=== PATIENT | male | born 1970 | race African-American/Black ===

== ENCOUNTER 2016-12-04 19:42 | Emergency (ER) | payer OTHER ==
[~2016-12-04] VITALS: Ht 170.2 cm; Wt 81.6 kg
[~2016-12-04 19:42] MED LIST: CLON1TAB3 PO; PHEN32.49 PO
[2016-12-04 20:46] LABS: Basophils # (auto) 0 uL; Basophils % (auto) 0.5 % (0.0-2.0); Eosinophils # (auto) 0.2 uL; Eosinophils % (auto) 3.4 % (0.0-7.0); Hematocrit 43.3 % (41.0-53.0); Hemoglobin 14.6 g/dL (13.5-17.5); Lymphocytes # (auto) 1.5 uL; Mean Corpuscular Hemoglobin 30.6 pg (28.0-32.0); Mean Corpuscular Hgb Conc. 33.8 g/dL (32.0-36.0); Mean Corpuscular Volume 90.8 fL (80.0-100.0); Mean Platelet Volume 7.7 fL (7.4-10.4); Monocytes # (auto) 0.3 uL; Monocytes % (auto) 6.1 % (0.0-12.0); Platelet Count (auto) 218 10^3/uL (140-450); Red Cell Distribution Width 12.8 % (11.6-16.0); White Blood Cell 4.9 10^3/uL (4.4-10.8)
[2016-12-04 21:06] LABS: Albumin 3.4 g/dL (3.4-5.0); Anion Gap 7 (5-15); Aspartate Aminotransferase 14 U/L (15-37); BUN/Creatinine Ratio 12.4; Blood Urea Nitrogen 11 mg/dL (7-18); Calcium 8.5 mg/dL (8.5-10.1); Carbon Dioxide 32 mmol/L (21-32); Chloride 102 mmol/L (98-107); GFR African American 119 mL/min; GFR Non-African American 99 mL/min; Glucose 99 mg/dL (74-106); Magnesium 2.2 mg/dL (1.6-2.6); Potassium 4.2 mmol/L (3.5-5.1); Sodium 141 mmol/L (136-145)
[2016-12-04 21:08] VITALS: BP 124/78
[2016-12-04 21:10] LABS: Alkaline Phosphatase 126 U/L (45-117); Bilirubin, Total 0.1 mg/dL (0.2-1.0); Total Protein 8.9 g/dL (6.4-8.2)
[2016-12-04 21:14] LABS: B-Type Natriuretic Peptide 13.14 pg/mL (0-100)
[2016-12-04 21:22] LABS: Temperature: 23.3 C (20.0-25.0)
[2016-12-04] MEDS ORDERED: cefTRIAXone 1GM/50ML D5W 50 ML IV ONE (21:45)
[2016-12-04] MEDS ORDERED: SODIUM CHLORIDE 0.9% 1,000 ML IV ONE (21:45)
[2016-12-04 22:23] LABS: Urine RBC None Seen /hpf (0 - 3)
[2016-12-04 22:45] LABS: Urine Bilirubin Negative (Negative); Urine Blood Negative /uL (Negative); Urine Color Yellow (Yellow); Urine Glucose Normal (Normal); Urine Ketone Negative (Negative); Urine Mucus FEW (None Seen); Urine Nitrite Negative (Negative); Urine Urobilinogen Normal (Negative)
== END 2016-12-04 23:34 | disposition home or self-care (01) ==
LOC: ER 19:57
DX: J40 Bronchitis, not specified as acute or chronic (principal)
CPT/HCPCS: 36415; 51702; 71010; 80053; 81001; 83735; 83880; 84484; 85025; 93005; 94761; 96365; 99285; J0696; J7030

== ENCOUNTER 2017-09-17 09:39 | Emergency (ER) | payer OTHER ==
[~2017-09-17] VITALS: Ht 165.1 cm; Wt 63.5 kg
[2017-09-17 09:52] VITALS: BP 110/74
[2017-09-17 10:11] LABS: Basophils # (auto) 0 uL; Basophils % (auto) 0.4 % (0.0-2.0); Eosinophils # (auto) 0 uL; Eosinophils % (auto) 0.4 % (0.0-7.0); Hematocrit 42.4 % (41.0-53.0); Hemoglobin 14.7 g/dL (13.5-17.5); Lymphocytes # (auto) 0.6 uL; Lymphocytes % (auto) 5.1 % (10.0-50.0); Mean Corpuscular Hemoglobin 30.9 pg (28.0-32.0); Mean Corpuscular Hgb Conc. 34.7 g/dL (32.0-36.0); Mean Corpuscular Volume 89.1 fL (80.0-100.0); Monocytes # (auto) 0.4 uL; Monocytes % (auto) 3.9 % (0.0-12.0); Neutrophils # (auto) 10.3 uL; Neutrophils % (auto) 90.2 % (37.0-80.0); Nucleated Red Blood Cells % 0.2 %; Platelet Count (auto) 221 10^3/uL (140-450); Red Blood Cells 4.76 10^6/uL (4.5-5.90); Red Cell Distribution Width 13.3 % (11.8-14.3); White Blood Cell 11.4 10^3/uL (4.4-10.8)
[2017-09-17 10:35] LABS: Albumin 3.8 g/dL (3.4-5.0); BUN/Creatinine Ratio 11.5; Calcium 9.3 mg/dL (8.5-10.1); Potassium 4.6 mmol/L (3.5-5.1); Total Protein 9.6 g/dL (6.4-8.2)
[2017-09-17] MEDS ORDERED: ONDANSETRON ODT 4 MG TAB PO ONE (12:00)
[2017-09-17 12:51] LABS: Bilirubin, Total 0.3 mg/dL (0.2-1.0)
== END 2017-09-17 13:24 | disposition home or self-care (01) ==
LOC: ER 09:39 → EDUNIT# 09:39 → EDBD 09:39 → ER 13:24
DX: G80.9 Cerebral palsy, unspecified (principal); R11.2 Nausea with vomiting, unspecified; Z91.010 Allergy to peanuts; Z91.013 Allergy to seafood; Z91.018 Allergy to other foods
CPT/HCPCS: 36415; 71045; 80053; 85025; 99285; Q0162

== ENCOUNTER 2018-01-30 18:43 | Inpatient (IN) | payer OTHER ==
[~2018-01-30] VITALS: Ht 177.8 cm; Wt 54.0 kg
[2018-01-30 21:19] LABS: Basophils # (auto) 0.1 uL; Basophils % (auto) 1.2 % (0.0-2.0); Eosinophils # (auto) 0.2 uL; Hematocrit 41.7 % (41.0-53.0); Hemoglobin 14.1 g/dL (13.5-17.5); Lymphocytes # (auto) 1.6 uL; Lymphocytes % (auto) 36.1 % (10.0-50.0); Mean Corpuscular Hgb Conc. 33.8 g/dL (32.0-36.0); Mean Corpuscular Volume 91.7 fL (80.0-100.0); Monocytes # (auto) 0.4 uL; Monocytes % (auto) 8.4 % (0.0-12.0); Neutrophils # (auto) 2.2 uL; Neutrophils % (auto) 49.3 % (37.0-80.0); Nucleated Red Blood Cells % 0.2 %; Platelet Count (auto) 200 10^3/uL (140-450); Red Blood Cells 4.54 10^6/uL (4.5-5.90); Red Cell Distribution Width 13.2 % (11.8-14.3); White Blood Cell 4.5 10^3/uL (4.4-10.8)
[2018-01-30 21:28] LABS: Albumin 3.2 g/dL (3.4-5.0); Anion Gap 7 (5-15); Blood Urea Nitrogen 16 mg/dL (7-18); Calcium 8.4 mg/dL (8.5-10.1); Carbon Dioxide 31 mmol/L (21-32); Chloride 108 mmol/L (98-107); GFR African American 104 mL/min; GFR Non-African American 86 mL/min; Glucose 81 mg/dL (74-106); Magnesium 2.1 mg/dL (1.6-2.6); Potassium 3.8 mmol/L (3.5-5.1); Sodium 146 mmol/L (136-145)
[2018-01-30 21:37] LABS: Alanine Aminotransferase 32 U/L (16-61); Alkaline Phosphatase 123 U/L (45-117); Aspartate Aminotransferase 15 U/L (15-37); Bilirubin, Total 0.2 mg/dL (0.2-1.0); Total Protein 8.9 g/dL (6.4-8.2)
[2018-01-30] MEDS ORDERED: SODIUM CHLORIDE 0.9% 1,000 ML IV ONE (22:45)
[2018-01-31] VITALS (7 sets, daily range): BP systolic 102–146; BP diastolic 68–100
[2018-01-31 00:17] LABS: Urine Bacteria NONE SEEN /hpf (None Seen); Urine Blood TRACE /uL (Negative); Urine Mucus FEW (None Seen); Urine Specific Gravity 1.032 (1.001-1.035); Urine WBC 1 /hpf (0 - 3)
[2018-01-31] MEDS ORDERED: cefTRIAXone 1GM/10ml IVPUSH 10 ML IV ONE ×2 (01:00)
[2018-01-31] MEDS ORDERED: ONDANSETRON HCL 4 MG/2 ML VIAL IV PRN (02:30)
[2018-01-31] MEDS ORDERED: ACETAMINOPHEN 325 MG TAB PO PRN (02:30)
[2018-01-31] MEDS ORDERED: TEMAZEPAM 15 MG CAP PO PRN (02:30)
[2018-01-31] MEDS: SODIUM CHLORIDE 0.9% 1,000 ML IV SCH ×4 (02:52→21:47)
[2018-01-31] MEDS: cefTRIAXone 1GM/10ml IVPUSH 10 ML IV SCH (09:12)
[2018-01-31] MEDS: ENOXAPARIN SOD 40 MG/0.4 ML SYRINGE SC SCH (10:00)
[2018-01-31] MEDS: FAMOTIDINE 20 MG TAB PO SCH ×2 (11:06→21:48)
[2018-01-31] MEDS: clonazePAM 0.5 MG TAB PO PRN (11:06)
[2018-01-31] MEDS: PHENobarbital 32.4 MG TAB PO SCH ×2 (11:06→21:48)
[2018-02-01] MEDS: SODIUM CHLORIDE 0.9% 1,000 ML IV SCH (04:21)
[2018-02-01] MEDS: clonazePAM 0.5 MG TAB PO PRN (04:40)
[2018-02-01 04:58] VITALS: BP 134/104
[2018-02-01 06:00] LABS: Basophils # (auto) 0 uL; Basophils % (auto) 0.8 % (0.0-2.0); Eosinophils # (auto) 0.2 uL; Eosinophils % (auto) 3.5 % (0.0-7.0); Hematocrit 39.3 % (41.0-53.0); Hemoglobin 13.4 g/dL (13.5-17.5); Lymphocytes # (auto) 1.4 uL; Lymphocytes % (auto) 25.7 % (10.0-50.0); Mean Corpuscular Hemoglobin 30.9 pg (28.0-32.0); Mean Corpuscular Hgb Conc. 34.1 g/dL (32.0-36.0); Mean Corpuscular Volume 90.6 fL (80.0-100.0); Monocytes # (auto) 0.3 uL; Monocytes % (auto) 6.3 % (0.0-12.0); Neutrophils # (auto) 3.5 uL; Neutrophils % (auto) 63.7 % (37.0-80.0); Platelet Count (auto) 199 10^3/uL (140-450); Red Blood Cells 4.34 10^6/uL (4.5-5.90); Red Cell Distribution Width 12.8 % (11.8-14.3); White Blood Cell 5.5 10^3/uL (4.4-10.8)
[2018-02-01 06:43] LABS: Albumin 3.1 g/dL (3.4-5.0); BUN/Creatinine Ratio 15.6; Bilirubin, Total 0.3 mg/dL (0.2-1.0); Calcium 8.4 mg/dL (8.5-10.1); Potassium 3.8 mmol/L (3.5-5.1); Total Protein 8.2 g/dL (6.4-8.2)
[2018-02-01 07:52] VITALS: BP 135/86
[2018-02-01] MEDS: ENOXAPARIN SOD 40 MG/0.4 ML SYRINGE SC SCH (10:54)
[2018-02-01] MEDS: PHENobarbital 32.4 MG TAB PO SCH (10:54)
[2018-02-01] MEDS: FAMOTIDINE 20 MG TAB PO SCH (10:54)
[2018-02-01] MEDS: cefTRIAXone 1GM/10ml IVPUSH 10 ML IV SCH (10:54)
[2018-02-01 11:57] VITALS: BP 139/97
[2018-02-01 12:09] VITALS: BP 139/97
== END 2018-02-01 13:00 | disposition home or self-care (01) | DRG 202 ==
LOC: EDUNIT# 18:43 → ER 18:46 → OVERFLOW 18:47 → EAST 01-31 03:35
PROVIDERS: ADMIT Nurse Practitioner; ATTEND Nurse Practitioner
DX: J20.9 Acute bronchitis, unspecified (principal); N39.0 Urinary tract infection, site not specified; R56.9 Unspecified convulsions; E86.0 Dehydration; F41.9 Anxiety disorder, unspecified; Z80.42 Family history of malignant neoplasm of prostate; Z82.49 Family history of ischemic heart disease and other diseases of the circulatory system; Z83.3 Family history of diabetes mellitus; Z91.010 Allergy to peanuts; Z91.013 Allergy to seafood
CPT/HCPCS: 36415; 71045; 80053; 81001; 83605; 83735; 84484; 85025; 87040; 96361; 96374

== ENCOUNTER 2018-09-03 14:09 | Emergency (ER) | payer OTHER ==
[~2018-09-03] VITALS: Ht 162.6 cm; Wt 54.9 kg
[~2018-09-03 14:09] MED LIST changes: -CLON1TAB3 PO; +CLON1TAB4 PO
[2018-09-03 14:13] VITALS: BP 115/96
[2018-09-03] MEDS ORDERED: IBUPROFEN 800 MG TAB PO ONE (15:00)
[2018-09-03] MEDS ORDERED: IBUPROFEN 100MG/5ML ORAL SUSP 100 MG/5 ML UD ONE (15:06)
[2018-09-03] MEDS ORDERED: IBUPROFEN 100MG/5ML ORAL SUSP 100 MG/5 ML UD PO ONE (15:15)
== END 2018-09-03 15:15 | disposition home or self-care (01) ==
LOC: ER 14:10
DX: L02.212 Cutaneous abscess of back [any part, except buttock and flank] (principal)
CPT/HCPCS: 10060

== ENCOUNTER 2018-09-05 08:58 | Emergency (ER) | payer OTHER ==
[~2018-09-05] VITALS: Ht 162.6 cm; Wt 65.8 kg
[2018-09-05 09:11] VITALS: BP 129/92
== END 2018-09-05 10:02 | disposition home or self-care (01) ==
LOC: ER 08:58
DX: L02.212 Cutaneous abscess of back [any part, except buttock and flank] (principal); Z48.01 Encounter for change or removal of surgical wound dressing; Z91.010 Allergy to peanuts; Z91.013 Allergy to seafood; Z91.018 Allergy to other foods; Z79.899 Other long term (current) drug therapy

== ENCOUNTER 2018-09-09 09:32 | Emergency (ER) | payer OTHER ==
[2018-09-09 10:00] VITALS: BP 108/64
== END 2018-09-09 13:01 | disposition home or self-care (01) ==
LOC: ER 09:34
DX: L02.212 Cutaneous abscess of back [any part, except buttock and flank] (principal); Z48.01 Encounter for change or removal of surgical wound dressing; Z91.010 Allergy to peanuts; Z91.013 Allergy to seafood

== ENCOUNTER 2018-12-01 22:03 | Emergency (ER) | payer OTHER ==
[~2018-12-01] VITALS: Ht 182.9 cm; Wt 64.9 kg
[2018-12-01 23:03] LABS: Basophils # (auto) 0 uL; Basophils % (auto) 0.2 % (0.0-2.0); Eosinophils # (auto) 0.1 uL; Eosinophils % (auto) 0.7 % (0.0-7.0); Hematocrit 43.9 % (41.0-53.0); Hemoglobin 14.8 g/dL (13.5-17.5); Lymphocytes # (auto) 1.5 uL; Lymphocytes % (auto) 18.2 % (10.0-50.0); Mean Corpuscular Hemoglobin 30.4 pg (28.0-32.0); Mean Corpuscular Hgb Conc. 33.7 g/dL (32.0-36.0); Mean Corpuscular Volume 90.3 fL (80.0-100.0); Monocytes # (auto) 0.4 uL; Monocytes % (auto) 5.1 % (0.0-12.0); Neutrophils # (auto) 6.3 uL; Neutrophils % (auto) 75.8 % (37.0-80.0); Nucleated Red Blood Cells % 0.1 %; Platelet Count (auto) 198 10^3/uL (140-450); Red Blood Cells 4.87 10^6/uL (4.5-5.90); Red Cell Distribution Width 13.6 % (11.8-14.3); White Blood Cell 8.3 10^3/uL (4.4-10.8)
[2018-12-01 23:23] LABS: Albumin 3.3 g/dL (3.4-5.0); BUN/Creatinine Ratio 10.1; Calcium 8.7 mg/dL (8.5-10.1); Potassium 4.3 mmol/L (3.5-5.1)
[2018-12-01 23:26] LABS: Bilirubin, Total 0.1 mg/dL (0.2-1.0); Total Protein 8.8 g/dL (6.4-8.2)
[2018-12-02] MEDS ORDERED: ALBUTEROL SULF 2.5 MG/0.5ML(0.5%) NEB SOLN NEB ONE (01:00)
[2018-12-02] MEDS ORDERED: IPRATROPIUM BROM 0.5 MG/2.5ML INH SOL NEB ONE (01:00)
[2018-12-02 01:03] VITALS: BP 150/98
== END 2018-12-02 02:15 | disposition home or self-care (01) ==
LOC: EDBD 22:03 → ER 22:11
DX: J40 Bronchitis, not specified as acute or chronic (principal)
CPT/HCPCS: 36415; 36600; 71045; 80053; 82805; 85025; 94640; 94761; 99284; J7611; J7644